=== PATIENT | male | born 1975 | race Caucasian/White ===

== ENCOUNTER 2023-04-13 10:50 | Day surgery (SDC) | payer OTHER ==
[2023-04-11 10:13] LABS: Basophils # (auto) 0.1 10 ^3/uL (0-0.2); Basophils % (auto) 1.2 % (0.0-2.0); Eosinophils # (auto) 0.5 10 ^3/uL (0-0.8); Eosinophils % (auto) 4.9 % (0.0-7.0); Hematocrit 45.2 % (41.0-53.0); Hemoglobin 15.7 g/dL (13.5-17.5); Lymphocytes # (auto) 2.9 10 ^3/uL (0.4-5.4); Lymphocytes % (auto) 28.8 % (10.0-50.0); Mean Corpuscular Hemoglobin 29.2 pg (28.0-32.0); Mean Corpuscular Hgb Conc. 34.8 g/dL (32.0-36.0); Mean Corpuscular Volume 83.9 fL (80.0-100.0); Monocytes # (auto) 0.6 10 ^3/uL (0-1.3); Neutrophils % (auto) 59.1 % (37.0-80.0); Nucleated Red Blood Cells % 0.1 %; Red Blood Cells 5.39 10^6/uL (4.5-5.90); Red Cell Distribution Width 13.8 % (11.8-14.3); White Blood Cell 10.2 10^3/uL (4.4-10.8)
[2023-04-11 10:49] LABS: INR 1.07 (0.9-1.15); Partial Thromboplastin Time 30.4 sec (24.6-33.4)
[2023-04-11 11:17] LABS: Potassium 4.8 mmol/L (3.5-5.1)
[2023-04-11 11:24] LABS: BUN/Creatinine Ratio 9.8 (10.0-20.0); Bilirubin, Total 0.8 mg/dL (0.2-1.0); Total Protein 7.5 g/dL (6.4-8.2)
[~2023-04-13] VITALS: Ht 180.3 cm; Wt 131.5 kg
[~2023-04-13 10:50] MED LIST: AMLO1TAB21 PO; ASPI1TAB20 PO; ATOR40TA52 PO; FLUT110A IN; IBUP-1454 PO; OMEP20TA PO
[2023-04-13] MEDS: MIDAZOLAM HCL 2MG/2ML 2ml VIAL (1mg/ml) ONE ×2 (13:55→14:01)
[2023-04-13] MEDS: fentaNYL CITRATE 100 MCG/2 ML VL ONE ×2 (13:55→14:01)
[2023-04-13] MEDS: diphenhdrAMINE HCL 50 MG/1 ML VL ONE ×2 (13:55→13:58)
[2023-04-13 14:45] VITALS: BP 130/71
== END 2023-04-13 15:00 | disposition home or self-care (01) ==
LOC: GI 10:50
PROVIDERS: ATTEND Internal Medicine Gastroenterology
DX: R10.30 Lower abdominal pain, unspecified (principal); K63.5 Polyp of colon; K64.8 Other hemorrhoids
CPT/HCPCS: 36415; 45385; 80053; 85025; 85610; 85730; J1200; J2250; J3010